=== PATIENT | female | born 1975 | race Caucasian/White ===

== ENCOUNTER → 2016-02-27 | Outpatient (CLI) | payer MEDICARE, OTHER ==
[~2016-02-27] MED LIST: AZULFIDINE500 MG PO; BACTRIM 200 MG/30 ML PO; CARDI-OMEGA1000 MG PO; DAILY VITAMIN1 EAC3 PO; DARAPRIM25 MG PO; DICYCLOMINE HCL10 MG PO; DIFLUCAN150 MG PO; LEUCOVORIN CALC10 MG PO; MOTRIN800 MG PO; MULTI VITAMINS/1 CTB PO; NO DAILY MEDS; PREDNISOL 5 ML5 M1 OP; ULTRAM50 MG PO; VICODIN 5/500 505 MG PO; VOLTAREN50 M1 PO; ZOFRAN ODT4 MG SL
== END ==
LOC: US 02-22 07:30
DX: K29.70 Gastritis, unspecified, without bleeding (principal); R14.0 Abdominal distension (gaseous)

== ENCOUNTER → 2016-05-18 | Day surgery (SDC) | payer MEDICARE, OTHER ==
[~2016-05-18] VITALS: Ht 162.5 cm; Wt 72.6 kg
--- NOTE | ~2016-05-18 | O ---
[place], [place] OPERATIVE NOTE NAME: JAKE BLACKBURN UNIT #: [id number] ROOM: DOCTOR: MAGUE MONTE MD BIRTHDATE: [birth year] DOS: 05/18/2016 GASTROENDOSCOPIC REPORT HISTORY OF PRESENT ILLNESS: A 41-year-old patient who has presented with chief complaint of abdominal pain, bloating, gassy, nonspecific diarrhea, constipation issues. FAMILY HISTORY: Noncontributory. ALLERGIES: To no known medications. SOCIAL HISTORY: Nonsmoker, rare alcohol consumer. PAST MEDICAL HISTORY: History of endometriosis, left ovarian oophorectomy. PROCEDURE: Today's procedure part of investigation is colonoscopy. PREMEDICATION: Versed and Diprivan. SCOPE: Olympus forward viewing colonoscope 10L video. REPORT: After putting the patient in the left lateral position and after application of lubricant to rectal pouch and digital examination, scope was introduced; thereafter, under direct visualization, advanced through the length of colon without difficulty. Base of the cecum explored, appendiceal orifice identified, and ileocecal valve was defined and photographed. The scope was gradually withdrawn from ascending, transverse, descending colon. The patient extubated, tolerated procedure well. IMPRESSION: Normal colonoscopic examination. DISCUSSION AND PLAN: The patient continues with ambiguous abdominal bloating, distress, possibility of IBS if the endometriosis is ruled out; therefore, we are going to organize a CT scan of the abdomen and pelvis with IV and p.o. contrast and dicyclomine 10 mg 1 every day, 30 tablets is provided through prescription and follow up in office in 2 weeks. PLAN AND DISCUSSION: High fiber diet. Activity ad charissa. Thank you very much indeed. [place], [place] OPERATIVE NOTE NAME: JAKE BLACKBURN UNIT #: [id number] ROOM: DOCTOR: MAGUE MONTE MD BIRTHDATE: [birth year] MAGUE MONTE MD CM:OPRECORD:OPERATIVE NOTE [id number] MAGUE MONTE MD 05/19/16 0133 interface
[2016-05-18 11:00] VITALS: BP 114/72
[2016-05-18 12:30] VITALS: BP 88/42
[2016-05-18 12:45] VITALS: BP 99/71
[2016-05-18 13:03] VITALS: BP 108/71
== END | disposition home or self-care (01) ==
LOC: SDC 05-11 12:30
DX: K59.00 Constipation, unspecified (principal); H54.0 Blindness, both eyes; Z90.721 Acquired absence of ovaries, unilateral

== ENCOUNTER → 2016-05-22 | Outpatient (CLI) | payer MEDICARE, OTHER | END | disposition home or self-care (01) | LOC: CT 09:49 | DX: R14.0 Abdominal distension (gaseous) (principal); R10.32 Left lower quadrant pain ==

== ENCOUNTER → 2017-01-18 | Outpatient (CLI) | payer MEDICARE, OTHER | END | disposition home or self-care (01) | LOC: US 14:49 | DX: D25.2 Subserosal leiomyoma of uterus (principal); Z90.721 Acquired absence of ovaries, unilateral ==

== ENCOUNTER → 2017-10-24 | Outpatient (CLI) | payer MEDICARE, OTHER | LOC: MAMMO 12:42 | DX: N63.20 Unspecified lump in the left breast, unspecified quadrant (principal) ==

== ENCOUNTER → 2018-05-27 | Outpatient (CLI) | payer MEDICARE, OTHER | END | disposition home or self-care (01) | LOC: US 09:51 | DX: Z12.39 Encounter for other screening for malignant neoplasm of breast (principal); R10.2 Pelvic and perineal pain ==

== ENCOUNTER 2018-06-20 16:01 | Emergency (ER) | payer MEDICARE, OTHER ==
[~2018-06-20] VITALS: Ht 162.5 cm; Wt 68.0 kg
== END 2018-06-20 18:56 | disposition home or self-care (01) ==
LOC: ED 16:01
DX: B34.9 Viral infection, unspecified (principal); K14.8 Other diseases of tongue; Z79.899 Other long term (current) drug therapy

== ENCOUNTER → 2018-09-03 | Outpatient (CLI) | payer MEDICARE, OTHER | END | disposition home or self-care (01) | LOC: LAB 01:08 | DX: E03.9 Hypothyroidism, unspecified (principal); E21.3 Hyperparathyroidism, unspecified; E55.9 Vitamin D deficiency, unspecified; R14.0 Abdominal distension (gaseous); E28.8 Other ovarian dysfunction; R94.5 Abnormal results of liver function studies ==

== ENCOUNTER → 2018-11-13 | Outpatient (CLI) | payer MEDICARE, OTHER ==
[2018-11-13 11:02] LABS: BASO % 0.6 % (0.0-1.0); EOS # 0.1 10*3/uL (0.0-0.4); EOS % 1.3 % (1.0-4.0); HEMATOCRIT 38.3 % (37.0-47.0); HEMOGLOBIN 12.3 g/dl (12.0-16.0); LYMPH # 2.6 10*3/uL (1.3-4.4); LYMPH % 48.3 % (27.0-41.0); MEAN CELL VOLUME 91.8 fl (81.0-99.0); MEAN CORPUSCULAR HGB 29.5 pg (27.0-31.0); MEAN CORPUSCULAR HGB CONC 32.1 g/dl (33.0-37.0); MEAN PLATELET VOLUME 8.7 fl (9.6-12.3); MONO # 0.4 10*3/uL (0.1-1.0); MONO % 7.5 % (3.0-9.0); NEUT # 2.3 10*3/uL (2.3-7.9); NEUT % 42.1 % (47.0-73.0); PLATELET COUNT AUTOMATED 249 10*3/uL (130-400); RED BLOOD COUNT 4.17 10*6/uL (4.10-5.10); RED CELL DISTRI WIDTH 13.1 % (0-14.5); WHITE BLOOD COUNT 5.3 10*3/uL (4.8-10.8)
[2018-11-13 11:30] LABS: ALBUMIN 4.3 gm/dl (3.1-4.5); PHOSPHOROUS 2.9 mg/dL (2.5-4.9)
[2018-11-13 12:26] LABS: VITAMIN D, 25-HYDROXY 59.4 ng/mL (30-100)
[2018-11-13 12:27] LABS: PTH INTACT 65.4 pg/mL (18.5-88.0)
[2018-11-14 13:03] LABS: CREATININE,URINE 87.1 mg/dL (Not Estab.)
[2018-11-14 14:05] LABS: URINE VOLUME 1925 mL
== END | disposition home or self-care (01) ==
LOC: LAB 10:25
PROVIDERS: Internal Medicine Endocrinology, Diabetes & Metabolism
DX: E55.9 Vitamin D deficiency, unspecified (principal); E21.3 Hyperparathyroidism, unspecified; D64.9 Anemia, unspecified

== ENCOUNTER → 2019-03-24 | Outpatient (CLI) | payer MEDICARE, OTHER ==
[2019-03-24 12:02] LABS: HEMATOCRIT 38.2 % (37.0-47.0); HEMOGLOBIN 12.2 g/dl (12.0-16.0); MEAN CELL VOLUME 93.2 fl (81.0-99.0); MEAN CORPUSCULAR HGB 29.8 pg (27.0-31.0); MEAN CORPUSCULAR HGB CONC 31.9 g/dl (33.0-37.0); MEAN PLATELET VOLUME 8.5 fl (9.6-12.3); RED BLOOD COUNT 4.1 10*6/uL (4.10-5.10); RED CELL DISTRI WIDTH 13.2 % (0-14.5)
[2019-03-24 12:28] LABS: ALBUMIN 3.9 gm/dl (3.1-4.5); BUN 9 mg/dl (7-24); CHLORIDE 109 mmol/L (98-107); POTASSIUM 4.5 mmol/L (3.5-5.1); SODIUM 142 mmol/L (136-145)
[2019-03-24 12:32] LABS: ALKALINE PHOSPHATASE 92 U/L (45-117); CREATININE 1.01 mg/dL (0.55-1.02); PHOSPHOROUS 3.7 mg/dL (2.5-4.9); SGOT/AST 23 IU/L (3-35); SGPT/ALT 41 U/L (12-78); TOTAL PROTEIN 7.1 gm/dL (6.4-8.2)
== END | disposition home or self-care (01) ==
LOC: LAB 11:38
PROVIDERS: Internal Medicine Endocrinology, Diabetes & Metabolism
DX: E21.3 Hyperparathyroidism, unspecified (principal); R94.5 Abnormal results of liver function studies

== ENCOUNTER 2020-03-13 14:40 | Emergency (ER) | payer MEDICARE, OTHER ==
[~2020-03-13] VITALS: Ht 162.5 cm; Wt 55.8 kg
[2020-03-13 16:10] LABS: BASO % 0.2 % (0.0-1.0); EOS # 0.2 10*3/uL (0.0-0.4); EOS % 2.7 % (1.0-4.0); HEMATOCRIT 39.8 % (37.0-47.0); LYMPH # 2.7 10*3/uL (1.3-4.4); LYMPH % 47.7 % (27.0-41.0); MEAN CELL VOLUME 86.7 fl (81.0-99.0); MEAN CORPUSCULAR HGB 28.3 pg (27.0-31.0); MEAN CORPUSCULAR HGB CONC 32.7 g/dl (33.0-37.0); MEAN PLATELET VOLUME 8.5 fl (9.6-12.3); MONO # 0.3 10*3/uL (0.1-1.0); NEUT # 2.5 10*3/uL (2.3-7.9); NEUT % 44.2 % (47.0-73.0); PLATELET COUNT AUTOMATED 344 10*3/uL (130-400); RED BLOOD COUNT 4.59 10*6/uL (4.10-5.10); RED CELL DISTRI WIDTH 12.7 % (0-14.5); WHITE BLOOD COUNT 5.6 10*3/uL (4.8-10.8)
[2020-03-13 16:21] LABS: ACT PARTIAL THROMBO TIME 24.8 SECONDS (20.0-32.1)
[2020-03-13 16:33] LABS: ALBUMIN 4.3 gm/dl (3.1-4.5); ALKALINE PHOSPHATASE 128 U/L (45-117); BUN 10 mg/dl (7-24); CHLORIDE 105 mmol/L (98-107); CPK 66 U/L (26-192); CREATININE 1.12 mg/dL (0.55-1.02); LDH 60 U/L (84-246); POTASSIUM 3.3 mmol/L (3.5-5.1); SGOT/AST 34 IU/L (3-35); SGPT/ALT 61 U/L (12-78); SODIUM 137 mmol/L (136-145)
[2020-03-13 16:38] LABS: ABG BASE EXCESS 1.3 mmol/L (-2.0-2.0); ARTERIAL BLOOD GAS PH 7.662 (7.35-7.45)
[2020-03-13 16:40] LABS: TROPONIN I < 0.015 ng/ml (<0.045)
[2020-03-13 23:14] LABS: ABG BASE EXCESS -3.3 mmol/L (-2.0-2.0); ARTERIAL BLOOD GAS PH 7.365 (7.35-7.45)
== END 2020-03-14 00:14 | disposition home or self-care (01) ==
LOC: ED 14:40
PROVIDERS: Emergency Medicine
DX: R06.4 Hyperventilation (principal); E87.3 Alkalosis; R43.8 Other disturbances of smell and taste; R06.02 Shortness of breath; H54.8 Legal blindness, as defined in USA; Z20.822 Contact with and (suspected) exposure to COVID-19; Z79.899 Other long term (current) drug therapy

== ENCOUNTER → 2021-02-01 | Outpatient (CLI) | payer MEDICARE, OTHER | LOC: MAMMO 01-24 16:30 | PROVIDERS: ATTEND Nurse Practitioner Women's Health | DX: N63.20 Unspecified lump in the left breast, unspecified quadrant (principal); N64.4 Mastodynia ==

== ENCOUNTER 2021-08-24 14:26 | Emergency (ER) | payer MEDICARE, OTHER ==
[~2021-08-24] VITALS: Wt 52.2 kg
[2021-08-24] MEDS ORDERED: HYDROXYZINE HCL25 MG PO (15:00)
[2021-08-24] MEDS ORDERED: KENALOG 0.1% OI15 GM T (15:00)
[2021-08-24] MEDS ORDERED: MEDROL DOSEPAK4 MG PO (15:00)
== END 2021-08-24 15:06 | disposition home or self-care (01) ==
LOC: ED 14:26
DX: L25.5 Unspecified contact dermatitis due to plants, except food (principal)

== ENCOUNTER 2021-09-03 11:16 | Emergency (ER) | payer MEDICARE, OTHER ==
[~2021-09-03] VITALS: Ht 162.5 cm; Wt 52.2 kg
[~2021-09-03 11:16] MED LIST changes: +HYDROXYZINE HCL25 MG PO; +KENALOG 0.1% OI15 GM T; +MEDROL DOSEPAK4 MG PO
[2021-09-03] MEDS ORDERED: Bactroban Oint22 GM T (13:07)
[2021-09-03] MEDS ORDERED: PREDNISONE20 M1 PO (13:07)
[2021-09-03] MEDS ORDERED: HYDROXYZINE HCL25 MG PO (13:07)
== END 2021-09-03 13:13 | disposition home or self-care (01) ==
LOC: ED 11:16
DX: L25.5 Unspecified contact dermatitis due to plants, except food (principal); Z79.899 Other long term (current) drug therapy

== ENCOUNTER 2021-09-24 19:24 | Emergency (ER) | payer MEDICARE, OTHER ==
[~2021-09-24 19:24] MED LIST changes: +Bactroban Oint22 GM T; +PREDNISONE20 M1 PO
== END 2021-09-24 20:23 | disposition home or self-care (01) ==
LOC: ED 19:24
DX: R21 Rash and other nonspecific skin eruption (principal); Z79.899 Other long term (current) drug therapy; Z87.42 Personal history of other diseases of the female genital tract

== ENCOUNTER 2023-02-28 16:32 | Emergency (ER) | payer MEDICARE, OTHER ==
[~2023-02-28] VITALS: Wt 65.8 kg
== END 2023-02-28 19:36 | disposition home or self-care (01) ==
LOC: ED 16:32
DX: S92.531A Displaced fracture of distal phalanx of right lesser toe(s), initial encounter for closed fracture (principal); Z98.890 Other specified postprocedural states; W20.8XXA Other cause of strike by thrown, projected or falling object, initial encounter; Y93.89 Activity, other specified; Y92.89 Other specified places as the place of occurrence of the external cause; Y99.8 Other external cause status

== ENCOUNTER → 2023-10-31 | Outpatient (CLI) | payer MEDICARE, OTHER | END | disposition home or self-care (01) | LOC: US 08:00 | PROVIDERS: ATTEND Family Medicine | DX: R74.8 Abnormal levels of other serum enzymes (principal) ==

== ENCOUNTER → 2023-11-06 | Outpatient (CLI) | payer MEDICARE, OTHER ==
[2023-11-06 15:07] LABS: TOTAL PROTEIN 7.4 gm/dL (6.0-8.0)
[2023-11-07 07:07] LABS: HBSAG Negative (Negative); HEP B CORE AB, IGM Negative (Negative); HEPATITIS C ANTIBODY Non Reactive (Non Reactive)
== END | disposition home or self-care (01) ==
LOC: LAB 14:12
PROVIDERS: ATTEND Family Medicine
DX: R79.89 Other specified abnormal findings of blood chemistry (principal); R10.32 Left lower quadrant pain

== ENCOUNTER → 2023-12-16 | Outpatient (CLI) | payer MEDICARE, OTHER ==
[2023-12-16 16:11] LABS: TOTAL PROTEIN 7.3 gm/dL (6.0-8.0)
== END | disposition home or self-care (01) ==
LOC: LAB 15:36
PROVIDERS: ATTEND Family Medicine
DX: R79.89 Other specified abnormal findings of blood chemistry (principal)